=== PATIENT | female | born 1995 | race Caucasian/White ===

== ENCOUNTER 2024-01-09 22:50 | Emergency (ER) | payer SELFPAY ==
[~2024-01-09] VITALS: Ht 167.6 cm; Wt 82.0 kg
[2024-01-09] MEDS: ONDANSETRON 4MG ODT PO ONE (22:40)
[2024-01-09 22:52] VITALS: BP 110/69; TEMP 98.1; O2SAT 98
[2024-01-09 22:54] VITALS: PULSE 93
[2024-01-09 23:45] VITALS: RESP 18; O2SAT 100
== END 2024-01-09 23:40 | disposition home or self-care (01) ==
LOC: ER 22:50
DX: F10.129 Alcohol abuse with intoxication, unspecified (principal); Y90.9 Presence of alcohol in blood, level not specified
CPT/HCPCS: 99283; Q0162